=== PATIENT | female | born 1950 | race Caucasian/White ===

== ENCOUNTER 2017-01-28 17:59 | Emergency (ER) | payer MEDICAID ==
[~2017-01-28] VITALS: Ht 167.6 cm; Wt 50.0 kg
[~2017-01-28 17:59] MED LIST: CALC1TAB15; VITA1CAP
[2017-01-28] MEDS ORDERED: METF500T7 PO (18:16)
[2017-01-28] MEDS ORDERED: NIAC100T3 PO (18:16)
[2017-01-28 19:44] LABS: GLUCOSE,POINT OF CARE 220 MG/DL (70-110)
[2017-01-28] MEDS ORDERED: KETOROLAC TROMETHAMINE 30 MG/ML VIAL IM ONE (20:00)
[2017-01-28 20:16] VITALS: BP 118/66
== END 2017-01-28 20:23 | disposition home or self-care (01) ==
LOC: EMS 18:00
DX: M76.9 Unspecified enthesopathy, lower limb, excluding foot (principal); E78.00 Pure hypercholesterolemia, unspecified; E11.9 Type 2 diabetes mellitus without complications
CPT/HCPCS: 36415; 73562; 82962; 84550; 96372; 99285; J1885